=== PATIENT | female | born 1950 | race Caucasian/White ===

== ENCOUNTER 2017-09-29 16:12 | Inpatient (IN) | payer MEDICARE, OTHER ==
[2017-09-29] MEDS: IV NORMAL SALINE 1000ML BAG 1,000 ML IV ×4 (16:28→21:25)
[2017-09-29 17:03] LABS: BASO % 0 % (0-3); EOS % 0 % (0-3); HEMATOCRIT 26.3 % (36.0-47.0); HEMOGLOBIN 8.1 g/dL (12.0-15.5); LYMPH # 0.2 x10^3/uL (1.0-4.8); LYMPH % 1 % (24-48); MEAN CORPUSCULAR HEMOGLOBIN 28 pg (25-35); MEAN CORPUSCULAR HGB CONC 31 g/dL (31-37); MEAN CORPUSCULAR VOLUME 92 fL (79-100); MONO # 0.9 x10^3/uL (0.0-1.1); MONO % 5 % (0-9); NEUT # 15.8 x10^3uL (1.8-7.7); NEUT % 93 % (31-73); PLATELET COUNT 211 x10^3/uL (140-400); RED BLOOD COUNT 2.85 x10^6/uL (3.50-5.40); RED CELL DISTRIBUTION WIDTH 16.9 % (11.5-14.5)
[2017-09-29] MEDS ORDERED: ONDANSETRON PF 4 MG/2 ML VIAL. (17:11)
[2017-09-29 17:12] LABS: INR 2.9 (0.8-1.1); PROTHROMBIN TIME PATIENT 29.5 SEC (11.7-14.0)
[2017-09-29] MEDS: ONDANSETRON PF 4 MG/2 ML VIAL. IV ×2 (17:15→21:23)
[2017-09-29 17:16] LABS: ANION GAP 11 (6-14); BLOOD UREA NITROGEN 32 mg/dL (7-20); BUN/CREATININE RATIO 11 (6-20); CALCIUM 8.1 mg/dL (8.5-10.1); CARBON DIOXIDE 19 mmol/L (21-32); CHLORIDE 109 mmol/L (98-107); GFR 15.5; GLUCOSE 75 mg/dL (70-99); POTASSIUM 4.9 mmol/L (3.5-5.1); SODIUM 139 mmol/L (136-145)
[2017-09-29 17:19] LABS: ADD MAN DIFF? YES
[2017-09-29 17:22] LABS: ALBUMIN 2.2 g/dL (3.4-5.0); ALBUMIN/GLOBULIN RATIO 0.8 (1.0-1.7); ALK PHOS 87 U/L (46-116); ALT (SGPT) 36 U/L (14-59); AST (SGOT) 36 U/L (15-37); CREATINE KINASE 74 U/L (26-192); MAGNESIUM 2.3 mg/dL (1.8-2.4); TOTAL BILIRUBIN 0.4 mg/dL (0.2-1.0); TOTAL PROTEIN 4.8 g/dL (6.4-8.2)
[2017-09-29 17:24] LABS: TROPONINI 0.021 ng/mL (0.000-0.055)
[2017-09-29 17:30] LABS: NT-PRO BNP 879 pg/mL (0-124)
[2017-09-29 17:30] LABS: CKMB MASS 1.5 ng/mL (0.0-3.6); CREATINE KINASE 76 U/L (26-192)
[2017-09-29] MEDS ORDERED: VANCOMYCIN 1GM IVPB FOR OMNI 250 ML IV (17:45)
[2017-09-29] MEDS: VANCOMYCIN 2 GM in IV 1/2 NORMAL SALINE 500 ML IV (17:56)
[2017-09-29] MEDS ORDERED: LIDOCAINE 1% Multi-Dose 20 ML VIAL. INJ (18:00)
[2017-09-29] MEDS: LIDOCAINE 1% PF 30 ML VIAL. INJ (18:00)
[2017-09-29 18:27] LABS: % BANDS 13 % (0-9); % METAS 2 % (0-0); % MONOS 5 % (0-10); % SEGS 80 % (35-66)
[2017-09-29 18:29] LABS: PLT ESTIMATE ADEQUATE (ADEQUATE)
[2017-09-29 18:43] LABS: LACTIC ACID 4.8 mmol/L (0.4-2.0)
[2017-09-29] MEDS: oxyCODONE/APAP 10/325 1 TAB TABLET PO (19:44)
[2017-09-29] MEDS: VANCOMYCIN PER PHARMACY MC ×2 (20:44→20:52)
[2017-09-29] MEDS ORDERED: ONDANSETRON PF 4 MG/2 ML VIAL. IV (21:30)
[2017-09-29 21:52] LABS: LACTIC ACID 0.4 mmol/L (0.4-2.0); TROPONINI 0.028 ng/mL (0.000-0.055)
[2017-09-29 22:13] LABS: BILIRUBIN,URINE NEGATIVE (NEG); CLARITY,URINE CLOUDY; COLOR,URINE YELLOW; GLUCOSE,URINE 100 mg/dL (NEG); NITRITE,URINE NEGATIVE (NEG); PH,URINE 5.5; PROTEIN,URINE 30 mg/dL (NEG-TRACE); UROBILINOGEN,URINE 0.2 mg/dL (0.2 mg/dL)
[2017-09-29 22:21] LABS: AMORPHOUS SEDIMENT,UR PRESENT /HPF; BACTERIA,URINE 0 /HPF (0-FEW); HYALINE CASTS, URINE MANY /HPF; RBC,URINE 0 /HPF (0-2); WBC,URINE 0 /HPF (0-4)
[2017-09-29] MEDS: ZOLPIDEM 5 MG TABLET. PO (22:40)
[2017-09-29] MEDS: MEROPENEM 500 MG in IV NORMAL SALINE 50ML 50 ML IV (22:40)
[2017-09-29] MEDS: DULoxetine HCL 30 MG CAPSULE.DR PO (22:40)
[2017-09-29] MEDS: ALBUMIN HUMAN 5% 500 ML IV (22:41)
[2017-09-29] MEDS: PREGABALIN 50 MG CAPSULE PO (22:41)
[2017-09-29] MEDS: HYDROCORTISONE SOD SUCC/PF 100 MG/2 ML VIAL. IV (22:41)
[2017-09-29] MEDS: SODIUM BICARBONATE VIAL 75 MEQ in IV 1/2 NORMAL SALINE 1,000 ML IV (23:42)
[2017-09-30] MEDS: oxyCODONE IR 5 MG TABLET PO ×2 (02:16→18:06)
[2017-09-30] MEDS: HYDROCORTISONE SOD SUCC/PF 100 MG/2 ML VIAL. IV ×3 (05:29→21:48)
[2017-09-30] MEDS: MEROPENEM 500 MG in IV NORMAL SALINE 50ML 50 ML IV ×3 (05:30→21:50)
[2017-09-30 05:51] LABS: ADD MAN DIFF? NO
[2017-09-30 06:01] LABS: BASO % 0 % (0-3); EOS % 0 % (0-3); HEMATOCRIT 25.6 % (36.0-47.0); HEMOGLOBIN 8.3 g/dL (12.0-15.5); LYMPH # 0.2 x10^3/uL (1.0-4.8); LYMPH % 1 % (24-48); MEAN CORPUSCULAR HEMOGLOBIN 28 pg (25-35); MEAN CORPUSCULAR HGB CONC 32 g/dL (31-37); MEAN CORPUSCULAR VOLUME 88 fL (79-100); MONO # 0.5 x10^3/uL (0.0-1.1); MONO % 4 % (0-9); NEUT % 95 % (31-73); PLATELET COUNT 212 x10^3/uL (140-400); RED BLOOD COUNT 2.92 x10^6/uL (3.50-5.40); RED CELL DISTRIBUTION WIDTH 16.4 % (11.5-14.5); WHITE BLOOD COUNT 14.7 x10^3/uL (4.0-11.0)
[2017-09-30 06:09] LABS: ANION GAP 10 (6-14); BLOOD UREA NITROGEN 28 mg/dL (7-20); CALCIUM 7.5 mg/dL (8.5-10.1); CARBON DIOXIDE 23 mmol/L (21-32); CHLORIDE 106 mmol/L (98-107); CREATININE 1.9 mg/dL (0.6-1.0); GFR 26.3; GLUCOSE 115 mg/dL (70-99); POTASSIUM 4.4 mmol/L (3.5-5.1); SODIUM 139 mmol/L (136-145)
[2017-09-30 06:28] LABS: INR 3.2 (0.8-1.1)
[2017-09-30] MEDS: DULoxetine HCL 30 MG CAPSULE.DR PO ×2 (08:24→21:47)
[2017-09-30] MEDS: ALBUMIN HUMAN 25% 100 ML IV ×3 (08:24→21:48)
[2017-09-30] MEDS: PREGABALIN 50 MG CAPSULE PO ×4 (08:24→21:47)
[2017-09-30] MEDS ORDERED: DOCUSATE SODIUM 100 MG CAPSULE. PO (08:30)
[2017-09-30] MEDS ORDERED: NON FORMULARY ITEM (Warfarin Sodium 1 TAB) PO (09:00)
[2017-09-30] MEDS ORDERED: ZOLPIDEM 5 MG TABLET. PO (09:30)
[2017-09-30] MEDS: ZOLPIDEM 5 MG TABLET. PO ×2 (09:30→21:48)
[2017-09-30] MEDS: ARIPiprazole 5 MG TABLET PO (09:53)
[2017-09-30] MEDS: MORPHINE SULFATE 4 MG/ML DISP.SYRIN. IV ×2 (09:53→19:35)
[2017-09-30] MEDS: HYDROXYCHLOROQUINE 200 MG TABLET PO ×2 (09:53→21:47)
[2017-09-30] MEDS: SODIUM BICARBONATE VIAL 75 MEQ in IV 1/2 NORMAL SALINE 1,000 ML IV (09:54)
[2017-09-30 11:08] LABS: % SAT IRON 5 % (15-34); IRON,SERUM 9 ug/dL (50-170)
[2017-09-30] MEDS: POLYETHYLENE GLYCOL 3350 17 GM PACKET. PO (11:20)
[2017-09-30] MEDS ORDERED: LOPERAMIDE 2 MG CAPSULE PO (11:45)
[2017-09-30] MEDS: PANTOPRAZOLE 40 MG TABLET.DR. PO (11:52)
[2017-09-30] MEDS: ONDANSETRON PF 4 MG/2 ML VIAL. IV ×2 (11:53→17:21)
[2017-09-30] MEDS: VANCOMYCIN PER PHARMACY MC (12:48)
[2017-09-30] MEDS ORDERED: MAGNESIUM SULFATE 2GM 50 ML IV (13:15)
[2017-09-30] MEDS: IV NORMAL SALINE 1000ML BAG 1,000 ML IV (13:44)
[2017-09-30 13:48] LABS: PREALBUMIN 14.2 mg/dL (16.0-42.0)
[2017-09-30 14:02] LABS: FERRITIN 238 ng/mL (8-252)
[2017-09-30] MEDS: VANCOMYCIN 1.25 GM in IV DEXTROSE 5 %-0.2 % NACL 250 ML IV (17:20)
[2017-09-30] MEDS: ACETAMINOPHEN 325 MG TABLET. PO (17:20)
[2017-09-30 18:12] LABS: MRSA BY PCR Negative (Negative)
[2017-09-30] MEDS: LACTOBACILLUS RHAMNOSUS GG 1 CAPSULE. PO (21:48)
[2017-10-01] MEDS: oxyCODONE IR 5 MG TABLET PO ×2 (01:17→11:41)
[2017-10-01] MEDS: MORPHINE SULFATE 4 MG/ML DISP.SYRIN. IV ×5 (02:04→20:01)
[2017-10-01] MEDS: IV NORMAL SALINE 1000ML BAG 1,000 ML IV (04:44)
[2017-10-01 04:57] LABS: ADD MAN DIFF? NO
[2017-10-01 05:10] LABS: BASO % 0 % (0-3); EOS % 0 % (0-3); LYMPH # 0.2 x10^3/uL (1.0-4.8); LYMPH % 2 % (24-48); MEAN CORPUSCULAR HEMOGLOBIN 29 pg (25-35); MEAN CORPUSCULAR HGB CONC 33 g/dL (31-37); MEAN CORPUSCULAR VOLUME 87 fL (79-100); MONO # 0.4 x10^3/uL (0.0-1.1); MONO % 4 % (0-9); NEUT # 9.3 x10^3uL (1.8-7.7); NEUT % 93 % (31-73); PLATELET COUNT 170 x10^3/uL (140-400); RED BLOOD COUNT 2.22 x10^6/uL (3.50-5.40); RED CELL DISTRIBUTION WIDTH 16.4 % (11.5-14.5)
[2017-10-01 05:24] LABS: HEMATOCRIT 19.3 % (36.0-47.0); HEMOGLOBIN 6.4 g/dL (12.0-15.5)
[2017-10-01 05:37] LABS: MAGNESIUM 1.8 mg/dL (1.8-2.4)
[2017-10-01 05:37] LABS: INR 3.2 (0.8-1.1)
[2017-10-01 05:41] LABS: ANION GAP 8 (6-14); BLOOD UREA NITROGEN 14 mg/dL (7-20); CALCIUM 7.8 mg/dL (8.5-10.1); CARBON DIOXIDE 28 mmol/L (21-32); CHLORIDE 107 mmol/L (98-107); CREATININE 1.2 mg/dL (0.6-1.0); GFR 44.7; GLUCOSE 110 mg/dL (70-99); PHOSPHORUS 2.7 mg/dL (2.6-4.7); POTASSIUM 3.2 mmol/L (3.5-5.1); SODIUM 143 mmol/L (136-145)
[2017-10-01] MEDS: MEROPENEM 500 MG in IV NORMAL SALINE 50ML 50 ML IV ×3 (06:29→19:59)
[2017-10-01] MEDS: HYDROCORTISONE SOD SUCC/PF 100 MG/2 ML VIAL. IV ×3 (06:30→21:33)
[2017-10-01] MEDS: VANCOMYCIN PER PHARMACY MC ×2 (07:39→19:49)
[2017-10-01] MEDS: DULoxetine HCL 30 MG CAPSULE.DR PO ×2 (08:44→20:02)
[2017-10-01] MEDS: PANTOPRAZOLE 40 MG TABLET.DR. PO (08:44)
[2017-10-01] MEDS: PREGABALIN 50 MG CAPSULE PO ×3 (08:44→20:15)
[2017-10-01] MEDS: LACTOBACILLUS RHAMNOSUS GG 1 CAPSULE. PO ×2 (08:44→20:02)
[2017-10-01] MEDS: HYDROXYCHLOROQUINE 200 MG TABLET PO ×2 (08:44→20:03)
[2017-10-01] MEDS: ARIPiprazole 5 MG TABLET PO (08:44)
[2017-10-01] MEDS: POLYETHYLENE GLYCOL 3350 17 GM PACKET. PO (08:45)
[2017-10-01 10:13] LABS: CROSSMATCH AHG 1 1
[2017-10-01] MEDS: ALBUMIN HUMAN 25% 100 ML IV ×3 (10:13→20:02)
[2017-10-01] MEDS: PHYTONADIONE (VIT K1) IV 10 MG in IV DEXTROSE 5% 50 ML IV (10:14)
[2017-10-01] MEDS: POTASSIUM CHLORIDE 20 MEQ TABLET.ER. PO (10:14)
[2017-10-01 11:11] LABS: TOTAL PROTEIN CREATININE RATIO 559 mg/g creat (0-200)
[2017-10-01] MEDS: ONDANSETRON PF 4 MG/2 ML VIAL. IV (11:41)
[2017-10-01] MEDS: IRON SUCROSE COMPLEX 200 MG in IV NORMAL SALINE 100ML 100 ML IV (12:31)
[2017-10-01 14:17] LABS: HEMATOCRIT 22.9 % (36.0-47.0); HEMOGLOBIN 7.6 g/dL (12.0-15.5); MEAN CORPUSCULAR HGB CONC 33 g/dL (31-37)
[2017-10-01 15:10] LABS: C DIFF BY PCR Negative (Negative)
[2017-10-01] MEDS: diphenhydrAMINE 50 MG/ML VIAL IVP (17:35)
[2017-10-01 18:06] LABS: VANC TR 15.5 mcg/mL (10.0-20.0)
[2017-10-01] MEDS: VANCOMYCIN 1.25 GM in IV DEXTROSE 5 %-0.2 % NACL 250 ML IV (18:35)
[2017-10-01] MEDS: ZOLPIDEM 5 MG TABLET. PO (20:02)
[2017-10-01] MEDS: MESALAMINE 1,000 MG SUPP.RECT PR (20:03)
[2017-10-02] MEDS: oxyCODONE IR 5 MG TABLET PO ×3 (00:28→21:31)
[2017-10-02] MEDS: diphenhydrAMINE 50 MG/ML VIAL IVP (00:28)
[2017-10-02] MEDS: MEROPENEM 500 MG in IV NORMAL SALINE 50ML 50 ML IV ×4 (00:29→17:53)
[2017-10-02] MEDS: HYDROCORTISONE SOD SUCC/PF 100 MG/2 ML VIAL. IV ×3 (05:58→21:20)
[2017-10-02] MEDS: MORPHINE SULFATE 4 MG/ML DISP.SYRIN. IV ×2 (05:59→14:04)
[2017-10-02 06:13] LABS: ADD MAN DIFF? NO
[2017-10-02 06:17] LABS: BASO % 0 % (0-3); EOS % 0 % (0-3); HEMATOCRIT 23.5 % (36.0-47.0); HEMOGLOBIN 7.6 g/dL (12.0-15.5); LYMPH # 0.4 x10^3/uL (1.0-4.8); LYMPH % 4 % (24-48); MEAN CORPUSCULAR HEMOGLOBIN 29 pg (25-35); MEAN CORPUSCULAR HGB CONC 33 g/dL (31-37); MEAN CORPUSCULAR VOLUME 88 fL (79-100); MONO # 0.8 x10^3/uL (0.0-1.1); MONO % 7 % (0-9); NEUT # 10.9 x10^3uL (1.8-7.7); NEUT % 90 % (31-73); PLATELET COUNT 176 x10^3/uL (140-400); RED BLOOD COUNT 2.68 x10^6/uL (3.50-5.40); RED CELL DISTRIBUTION WIDTH 16.4 % (11.5-14.5); WHITE BLOOD COUNT 12.2 x10^3/uL (4.0-11.0)
[2017-10-02 06:31] LABS: ALBUMIN 3.7 g/dL (3.4-5.0); ANION GAP 8 (6-14); BLOOD UREA NITROGEN 15 mg/dL (7-20); CALCIUM 8.4 mg/dL (8.5-10.1); CARBON DIOXIDE 29 mmol/L (21-32); CHLORIDE 109 mmol/L (98-107); CREATININE 1.1 mg/dL (0.6-1.0); GFR 49.4; GLUCOSE 105 mg/dL (70-99); MAGNESIUM 1.8 mg/dL (1.8-2.4); PHOSPHORUS 1.7 mg/dL (2.6-4.7); POTASSIUM 3.5 mmol/L (3.5-5.1); SODIUM 146 mmol/L (136-145)
[2017-10-02 06:34] LABS: INR 1.2 (0.8-1.1); PROTHROMBIN TIME PATIENT 14.5 SEC (11.7-14.0)
[2017-10-02] MEDS: POLYETHYLENE GLYCOL 3350 17 GM PACKET. PO (09:00)
[2017-10-02 09:25] LABS: VITAMIN-B12 1004 pg/mL (247-911)
[2017-10-02] MEDS: LACTOBACILLUS RHAMNOSUS GG 1 CAPSULE. PO ×2 (09:28→21:19)
[2017-10-02] MEDS: HYDROXYCHLOROQUINE 200 MG TABLET PO ×2 (09:29→21:19)
[2017-10-02] MEDS: DULoxetine HCL 30 MG CAPSULE.DR PO ×2 (09:29→21:20)
[2017-10-02] MEDS: PREGABALIN 50 MG CAPSULE PO ×3 (09:29→21:20)
[2017-10-02] MEDS: ARIPiprazole 5 MG TABLET PO (09:29)
[2017-10-02] MEDS: PANTOPRAZOLE 40 MG TABLET.DR. PO (09:29)
[2017-10-02] MEDS: IRON SUCROSE COMPLEX 200 MG in IV NORMAL SALINE 100ML 100 ML IV (09:30)
[2017-10-02] MEDS: ONDANSETRON PF 4 MG/2 ML VIAL. IV (09:47)
[2017-10-02 10:38] LABS: FOLATE > 20.00 ng/ml (3.2-20.0)
[2017-10-02] MEDS: ASCORBIC ACID 500 MG TABLET PO (14:12)
[2017-10-02] MEDS: MULTIVITAMIN with MINERAL TABLET. PO (14:13)
[2017-10-02] MEDS: VANCOMYCIN PER PHARMACY MC (14:42)
[2017-10-02] MEDS: ALPRAZolam 0.5 MG TABLET PO (17:49)
[2017-10-02] MEDS: WARFARIN 3 MG TABLET. PO (17:49)
[2017-10-02] MEDS: VANCOMYCIN 1.25 GM in IV DEXTROSE 5 %-0.2 % NACL 250 ML IV (19:08)
[2017-10-02] MEDS: ZOLPIDEM 5 MG TABLET. PO (21:19)
[2017-10-02] MEDS: MESALAMINE 1,000 MG SUPP.RECT PR (21:20)
[2017-10-03] MEDS: MEROPENEM 500 MG in IV NORMAL SALINE 50ML 50 ML IV ×5 (00:09→23:38)
[2017-10-03] MEDS: MORPHINE SULFATE 4 MG/ML DISP.SYRIN. IV ×5 (02:36→23:38)
[2017-10-03] MEDS: diphenhydrAMINE 50 MG/ML VIAL IVP ×2 (02:40→17:59)
[2017-10-03] MEDS: HYDROCORTISONE SOD SUCC/PF 100 MG/2 ML VIAL. IV ×3 (05:56→21:22)
[2017-10-03] MEDS: oxyCODONE IR 5 MG TABLET PO ×3 (06:12→19:48)
[2017-10-03 06:29] LABS: INR 1.1 (0.8-1.1); PROTHROMBIN TIME PATIENT 13.7 SEC (11.7-14.0)
[2017-10-03 06:41] LABS: ALBUMIN 3.4 g/dL (3.4-5.0); ANION GAP 7 (6-14); BLOOD UREA NITROGEN 14 mg/dL (7-20); CALCIUM 8.2 mg/dL (8.5-10.1); CARBON DIOXIDE 29 mmol/L (21-32); CHLORIDE 112 mmol/L (98-107); CREATININE 0.9 mg/dL (0.6-1.0); GFR 62.3; GLUCOSE 94 mg/dL (70-99); MAGNESIUM 1.9 mg/dL (1.8-2.4); PHOSPHORUS 2.2 mg/dL (2.6-4.7); POTASSIUM 3.2 mmol/L (3.5-5.1); SODIUM 148 mmol/L (136-145)
[2017-10-03 08:19] LABS: ADD MAN DIFF? NO
[2017-10-03 08:39] LABS: BASO % 0 % (0-3); EOS % 0 % (0-3); HEMATOCRIT 24.6 % (36.0-47.0); HEMOGLOBIN 8.2 g/dL (12.0-15.5); LYMPH # 0.4 x10^3/uL (1.0-4.8); LYMPH % 3 % (24-48); MEAN CORPUSCULAR HEMOGLOBIN 29 pg (25-35); MEAN CORPUSCULAR HGB CONC 33 g/dL (31-37); MEAN CORPUSCULAR VOLUME 86 fL (79-100); MONO % 7 % (0-9); NEUT # 12.6 x10^3uL (1.8-7.7); NEUT % 90 % (31-73); PLATELET COUNT 175 x10^3/uL (140-400); RED BLOOD COUNT 2.86 x10^6/uL (3.50-5.40); RED CELL DISTRIBUTION WIDTH 16.5 % (11.5-14.5); WHITE BLOOD COUNT 14.1 x10^3/uL (4.0-11.0)
[2017-10-03] MEDS: DULoxetine HCL 30 MG CAPSULE.DR PO ×2 (08:58→21:22)
[2017-10-03] MEDS: MULTIVITAMIN with MINERAL TABLET. PO (08:58)
[2017-10-03] MEDS: PANTOPRAZOLE 40 MG TABLET.DR. PO (08:58)
[2017-10-03] MEDS: traMADol 50 MG TABLET PO (08:58)
[2017-10-03] MEDS: PREGABALIN 50 MG CAPSULE PO ×3 (08:58→21:22)
[2017-10-03] MEDS: ARIPiprazole 5 MG TABLET PO (08:58)
[2017-10-03] MEDS: LACTOBACILLUS RHAMNOSUS GG 1 CAPSULE. PO ×2 (08:58→21:22)
[2017-10-03] MEDS: POLYETHYLENE GLYCOL 3350 17 GM PACKET. PO (08:59)
[2017-10-03] MEDS: HYDROXYCHLOROQUINE 200 MG TABLET PO ×2 (08:59→21:22)
[2017-10-03] MEDS: ASCORBIC ACID 500 MG TABLET PO (08:59)
[2017-10-03] MEDS: hydrALAZINE 20 MG/ML VIAL. IVP ×2 (09:00→19:49)
[2017-10-03] MEDS: LISINOPRIL 20 MG TABLET PO (10:48)
[2017-10-03] MEDS: tiZANidine 4 MG TABLET. PO (10:49)
[2017-10-03] MEDS: amLODIPine BESYLATE 5 MG TABLET PO (10:49)
[2017-10-03] MEDS ORDERED: CONTRAST GIVEN. MC (12:15)
[2017-10-03] MEDS: IOHEXOL 300 MG/ML 100ML VIAL. IV ×2 (12:30→12:49)
[2017-10-03] MEDS: DICLOFENAC SODIUM 1% TOPICAL GEL 100GM TUBE. TP ×3 (13:17→21:35)
[2017-10-03] MEDS: ALPRAZolam 0.5 MG TABLET PO ×2 (13:20→21:22)
[2017-10-03] MEDS: WARFARIN 5 MG TABLET. PO (15:47)
[2017-10-03] MEDS: VANCOMYCIN 1.25 GM in IV DEXTROSE 5 %-0.2 % NACL 250 ML IV (17:59)
[2017-10-03] MEDS: ZOLPIDEM 5 MG TABLET. PO (21:22)
[2017-10-03] MEDS: MESALAMINE 1,000 MG SUPP.RECT PR (21:22)
[2017-10-04] MEDS: HYDROCORTISONE SOD SUCC/PF 100 MG/2 ML VIAL. IV ×3 (05:13→21:08)
[2017-10-04] MEDS: MEROPENEM 500 MG in IV NORMAL SALINE 50ML 50 ML IV ×3 (05:13→17:31)
[2017-10-04] MEDS: oxyCODONE IR 5 MG TABLET PO ×2 (05:14→17:31)
[2017-10-04] MEDS: hydrALAZINE 20 MG/ML VIAL. IVP (05:14)
[2017-10-04 06:26] LABS: INR 1.1 (0.8-1.1); PROTHROMBIN TIME PATIENT 14.1 SEC (11.7-14.0)
[2017-10-04 06:34] LABS: ALBUMIN 3.6 g/dL (3.4-5.0); ANION GAP 11 (6-14); BLOOD UREA NITROGEN 14 mg/dL (7-20); CALCIUM 8.5 mg/dL (8.5-10.1); CARBON DIOXIDE 29 mmol/L (21-32); CHLORIDE 109 mmol/L (98-107); GFR 55.1; GLUCOSE 94 mg/dL (70-99); MAGNESIUM 1.8 mg/dL (1.8-2.4); PHOSPHORUS 2.4 mg/dL (2.6-4.7); SODIUM 149 mmol/L (136-145)
[2017-10-04 06:45] LABS: POTASSIUM 2.6 mmol/L (3.5-5.1)
[2017-10-04] MEDS: MULTIVITAMIN with MINERAL TABLET. PO (08:31)
[2017-10-04] MEDS: LACTOBACILLUS RHAMNOSUS GG 1 CAPSULE. PO ×2 (08:31→21:07)
[2017-10-04] MEDS: ARIPiprazole 5 MG TABLET PO (08:32)
[2017-10-04] MEDS: PREGABALIN 50 MG CAPSULE PO ×3 (08:32→21:07)
[2017-10-04] MEDS: ACETAMINOPHEN 325 MG TABLET. PO (08:32)
[2017-10-04] MEDS: HYDROXYCHLOROQUINE 200 MG TABLET PO ×2 (08:32→21:19)
[2017-10-04] MEDS: PANTOPRAZOLE 40 MG TABLET.DR. PO (08:32)
[2017-10-04] MEDS: DULoxetine HCL 30 MG CAPSULE.DR PO ×2 (08:32→21:07)
[2017-10-04] MEDS: IRON SUCROSE COMPLEX 200 MG in IV NORMAL SALINE 100ML 100 ML IV (08:32)
[2017-10-04] MEDS: amLODIPine BESYLATE 5 MG TABLET PO (08:33)
[2017-10-04] MEDS: ASCORBIC ACID 500 MG TABLET PO (08:33)
[2017-10-04] MEDS: LISINOPRIL 20 MG TABLET PO (08:33)
[2017-10-04] MEDS: POLYETHYLENE GLYCOL 3350 17 GM PACKET. PO (08:34)
[2017-10-04] MEDS: DICLOFENAC SODIUM 1% TOPICAL GEL 100GM TUBE. TP ×4 (08:34→21:08)
[2017-10-04] MEDS: POTASSIUM CHLORIDE 10 MEQ TABLET.ER. PO (08:34)
[2017-10-04] MEDS: diphenhydrAMINE 50 MG/ML VIAL IVP (11:46)
[2017-10-04] MEDS: ALPRAZolam 0.5 MG TABLET PO ×2 (11:50→21:07)
[2017-10-04] MEDS: NYSTATIN 100,000 UNITS/ML 5 ML ORAL.SUSP. SWSW ×3 (12:00→21:19)
[2017-10-04] MEDS: MORPHINE SULFATE 4 MG/ML DISP.SYRIN. IV ×2 (16:16→21:08)
[2017-10-04] MEDS: WARFARIN 7.5 MG TABLET. PO (16:17)
[2017-10-04] MEDS: ZOLPIDEM 5 MG TABLET. PO (21:07)
[2017-10-04] MEDS: MESALAMINE 1,000 MG SUPP.RECT PR (21:08)
[2017-10-05] MEDS: hydrALAZINE 20 MG/ML VIAL. IVP (00:44)
[2017-10-05] MEDS: oxyCODONE IR 5 MG TABLET PO ×4 (02:04→21:35)
[2017-10-05] MEDS: HYDROCORTISONE SOD SUCC/PF 100 MG/2 ML VIAL. IV (06:16)
[2017-10-05] MEDS: MEROPENEM 500 MG in IV NORMAL SALINE 50ML 50 ML IV ×2 (06:16)
[2017-10-05 06:37] LABS: ADD MAN DIFF? NO
[2017-10-05 06:40] LABS: BASO % 0 % (0-3); EOS % 0 % (0-3); HEMATOCRIT 24.5 % (36.0-47.0); HEMOGLOBIN 8.3 g/dL (12.0-15.5); LYMPH # 0.7 x10^3/uL (1.0-4.8); LYMPH % 5 % (24-48); MEAN CORPUSCULAR HEMOGLOBIN 29 pg (25-35); MEAN CORPUSCULAR HGB CONC 34 g/dL (31-37); MEAN CORPUSCULAR VOLUME 85 fL (79-100); MONO % 8 % (0-9); NEUT # 11.2 x10^3uL (1.8-7.7); NEUT % 87 % (31-73); PLATELET COUNT 161 x10^3/uL (140-400); RED BLOOD COUNT 2.88 x10^6/uL (3.50-5.40); RED CELL DISTRIBUTION WIDTH 16.7 % (11.5-14.5); WHITE BLOOD COUNT 12.8 x10^3/uL (4.0-11.0)
[2017-10-05 06:57] LABS: INR 1.8 (0.8-1.1); PROTHROMBIN TIME PATIENT 20.2 SEC (11.7-14.0)
[2017-10-05 07:06] LABS: ANION GAP 5 (6-14); BLOOD UREA NITROGEN 17 mg/dL (7-20); CALCIUM 8.1 mg/dL (8.5-10.1); CARBON DIOXIDE 34 mmol/L (21-32); CHLORIDE 110 mmol/L (98-107); GFR 55.1; GLUCOSE 91 mg/dL (70-99); MAGNESIUM 1.8 mg/dL (1.8-2.4); PHOSPHORUS 3.2 mg/dL (2.6-4.7); SODIUM 149 mmol/L (136-145)
[2017-10-05 07:10] LABS: POTASSIUM 2.2 mmol/L (3.5-5.1)
[2017-10-05] MEDS: NYSTATIN 100,000 UNITS/ML 5 ML ORAL.SUSP. SWSW ×4 (08:27→20:15)
[2017-10-05] MEDS: HYDROXYCHLOROQUINE 200 MG TABLET PO ×2 (08:27→20:15)
[2017-10-05] MEDS: PREGABALIN 50 MG CAPSULE PO ×3 (08:28→20:16)
[2017-10-05] MEDS: ASCORBIC ACID 500 MG TABLET PO (08:28)
[2017-10-05] MEDS: amLODIPine BESYLATE 5 MG TABLET PO (08:28)
[2017-10-05] MEDS: DULoxetine HCL 30 MG CAPSULE.DR PO ×2 (08:28→20:16)
[2017-10-05] MEDS: PANTOPRAZOLE 40 MG TABLET.DR. PO (08:28)
[2017-10-05] MEDS: ARIPiprazole 5 MG TABLET PO (08:28)
[2017-10-05] MEDS: MULTIVITAMIN with MINERAL TABLET. PO (08:28)
[2017-10-05] MEDS: LACTOBACILLUS RHAMNOSUS GG 1 CAPSULE. PO ×2 (08:28→20:16)
[2017-10-05] MEDS: LISINOPRIL 20 MG TABLET PO (08:29)
[2017-10-05] MEDS: POTASSIUM CHLORIDE 20 MEQ TABLET.ER. PO ×2 (08:29→15:13)
[2017-10-05] MEDS: POLYETHYLENE GLYCOL 3350 17 GM PACKET. PO (08:32)
[2017-10-05] MEDS: DICLOFENAC SODIUM 1% TOPICAL GEL 100GM TUBE. TP ×4 (08:32→20:14)
[2017-10-05] MEDS: LINEZOLID 600 MG TABLET PO ×2 (09:30→20:15)
[2017-10-05] MEDS: ONDANSETRON PF 4 MG/2 ML VIAL. IV ×2 (09:39→18:17)
[2017-10-05] MEDS: COLESTIPOL HCL 1 GM TABLET PO (13:11)
[2017-10-05] MEDS: tiZANidine 4 MG TABLET. PO (15:13)
[2017-10-05] MEDS: WARFARIN 4 MG TABLET. PO (15:13)
[2017-10-05] MEDS: MORPHINE SULFATE 4 MG/ML DISP.SYRIN. IV ×2 (16:31→20:15)
[2017-10-05] MEDS: MESALAMINE 1,000 MG SUPP.RECT PR (20:15)
[2017-10-05] MEDS: ALPRAZolam 0.5 MG TABLET PO (20:15)
[2017-10-05] MEDS: ZOLPIDEM 5 MG TABLET. PO (20:16)
[2017-10-05] MEDS: diphenhydrAMINE 50 MG/ML VIAL IVP (21:36)
[2017-10-06] MEDS: MORPHINE SULFATE 4 MG/ML DISP.SYRIN. IV ×3 (03:10→19:48)
[2017-10-06 07:07] LABS: ALBUMIN 2.8 g/dL (3.4-5.0); ANION GAP 5 (6-14); BLOOD UREA NITROGEN 16 mg/dL (7-20); CALCIUM 8.2 mg/dL (8.5-10.1); CARBON DIOXIDE 36 mmol/L (21-32); CHLORIDE 109 mmol/L (98-107); CREATININE 0.9 mg/dL (0.6-1.0); GFR 62.3; GLUCOSE 59 mg/dL (70-99); PHOSPHORUS 1.6 mg/dL (2.6-4.7); SODIUM 150 mmol/L (136-145)
[2017-10-06 07:10] LABS: INR 2.2 (0.8-1.1); PROTHROMBIN TIME PATIENT 23.9 SEC (11.7-14.0)
[2017-10-06 07:12] LABS: POTASSIUM 2.5 mmol/L (3.5-5.1)
[2017-10-06] MEDS: oxyCODONE IR 5 MG TABLET PO ×3 (07:59→17:49)
[2017-10-06] MEDS: LINEZOLID 600 MG TABLET PO ×2 (07:59→22:09)
[2017-10-06] MEDS: HYDROXYCHLOROQUINE 200 MG TABLET PO ×2 (07:59→22:13)
[2017-10-06] MEDS: PREGABALIN 50 MG CAPSULE PO ×3 (08:00→22:08)
[2017-10-06] MEDS: NYSTATIN 100,000 UNITS/ML 5 ML ORAL.SUSP. SWSW ×4 (08:00→22:09)
[2017-10-06] MEDS: POLYETHYLENE GLYCOL 3350 17 GM PACKET. PO (08:00)
[2017-10-06] MEDS: DICLOFENAC SODIUM 1% TOPICAL GEL 100GM TUBE. TP ×4 (08:00→22:09)
[2017-10-06] MEDS: ASCORBIC ACID 500 MG TABLET PO (08:01)
[2017-10-06] MEDS: ARIPiprazole 5 MG TABLET PO (08:01)
[2017-10-06] MEDS: POTASSIUM CHLORIDE 20 MEQ TABLET.ER. PO ×2 (08:01→12:16)
[2017-10-06] MEDS: LISINOPRIL 20 MG TABLET PO (08:02)
[2017-10-06] MEDS: MULTIVITAMIN with MINERAL TABLET. PO (08:02)
[2017-10-06] MEDS: amLODIPine BESYLATE 5 MG TABLET PO (08:03)
[2017-10-06] MEDS: LACTOBACILLUS RHAMNOSUS GG 1 CAPSULE. PO ×2 (08:03→22:07)
[2017-10-06] MEDS: PANTOPRAZOLE 40 MG TABLET.DR. PO (08:03)
[2017-10-06] MEDS: DULoxetine HCL 30 MG CAPSULE.DR PO ×2 (08:03→22:07)
[2017-10-06] MEDS: predniSONE 10 MG TABLET PO (08:03)
[2017-10-06] MEDS: IRON SUCROSE COMPLEX 200 MG in IV NORMAL SALINE 100ML 100 ML IV (08:13)
[2017-10-06] MEDS: ALPRAZolam 0.5 MG TABLET PO ×2 (08:18→22:34)
[2017-10-06] MEDS: diphenhydrAMINE 50 MG/ML VIAL IVP ×2 (08:18→22:13)
[2017-10-06] MEDS ORDERED: ASCORBIC ACID 500 MG TABLET PO (11:00)
[2017-10-06] MEDS: COLESTIPOL HCL 1 GM TABLET PO ×2 (12:15→21:07)
[2017-10-06] MEDS: ALBUMIN HUMAN 25% 100 ML IV (12:15)
[2017-10-06] MEDS: MULTIVITAMIN I-VITE TABLET. PO (12:15)
[2017-10-06 16:05] LABS: MAGNESIUM 1.6 mg/dL (1.8-2.4)
[2017-10-06 16:05] LABS: PHOSPHORUS 1.6 mg/dL (2.6-4.7)
[2017-10-06] MEDS: WARFARIN 4 MG TABLET. PO (17:49)
[2017-10-06] MEDS: POTASSIUM CL 20MEQ D5-0.45NACL 1,000 ML IV (18:01)
[2017-10-06] MEDS: POTASSIUM PHOSPHATE DIBASIC 13.6 MMOL in IV NORMAL SALINE 100ML 100 ML IV ×2 (19:49→22:28)
[2017-10-06] MEDS: ZOLPIDEM 5 MG TABLET. PO (22:08)
[2017-10-06] MEDS: MESALAMINE 1,000 MG SUPP.RECT PR (22:08)
[2017-10-07] MEDS: oxyCODONE IR 5 MG TABLET PO ×4 (03:00→21:39)
[2017-10-07] MEDS: POTASSIUM CL 20MEQ D5-0.45NACL 1,000 ML IV ×2 (04:59→12:55)
[2017-10-07] MEDS: MORPHINE SULFATE 4 MG/ML DISP.SYRIN. IV ×3 (05:53→20:18)
[2017-10-07 07:06] LABS: ALBUMIN 3.1 g/dL (3.4-5.0); ANION GAP 4 (6-14); BLOOD UREA NITROGEN 10 mg/dL (7-20); CALCIUM 7.5 mg/dL (8.5-10.1); CARBON DIOXIDE 36 mmol/L (21-32); CHLORIDE 107 mmol/L (98-107); CREATININE 0.7 mg/dL (0.6-1.0); GFR 83.2; GLUCOSE 81 mg/dL (70-99); POTASSIUM 3.4 mmol/L (3.5-5.1); SODIUM 147 mmol/L (136-145)
[2017-10-07 07:14] LABS: INR 2.9 (0.8-1.1); PROTHROMBIN TIME PATIENT 29.9 SEC (11.7-14.0)
[2017-10-07] MEDS: POLYETHYLENE GLYCOL 3350 17 GM PACKET. PO (07:52)
[2017-10-07] MEDS: DICLOFENAC SODIUM 1% TOPICAL GEL 100GM TUBE. TP ×4 (07:53→21:00)
[2017-10-07] MEDS: PANTOPRAZOLE 40 MG TABLET.DR. PO (08:00)
[2017-10-07] MEDS: ARIPiprazole 5 MG TABLET PO (08:00)
[2017-10-07] MEDS: PREGABALIN 50 MG CAPSULE PO ×3 (08:00→21:40)
[2017-10-07] MEDS: LACTOBACILLUS RHAMNOSUS GG 1 CAPSULE. PO ×2 (08:00→21:42)
[2017-10-07] MEDS: predniSONE 10 MG TABLET PO (08:01)
[2017-10-07] MEDS: DULoxetine HCL 30 MG CAPSULE.DR PO ×2 (08:01→21:42)
[2017-10-07] MEDS: LINEZOLID 600 MG TABLET PO ×2 (08:01→21:42)
[2017-10-07] MEDS: ASCORBIC ACID 500 MG TABLET PO (08:01)
[2017-10-07] MEDS: NYSTATIN 100,000 UNITS/ML 5 ML ORAL.SUSP. SWSW ×4 (08:02→21:43)
[2017-10-07] MEDS: LISINOPRIL 20 MG TABLET PO (08:02)
[2017-10-07] MEDS: MULTIVITAMIN I-VITE TABLET. PO (08:02)
[2017-10-07] MEDS: COLESTIPOL HCL 1 GM TABLET PO ×2 (08:02→20:06)
[2017-10-07] MEDS: amLODIPine BESYLATE 5 MG TABLET PO ×2 (08:05→21:42)
[2017-10-07] MEDS: HYDROXYCHLOROQUINE 200 MG TABLET PO ×2 (08:06→21:41)
[2017-10-07] MEDS: MAGNESIUM OXIDE 400 MG TABLET PO (12:52)
[2017-10-07] MEDS: POTASSIUM & SODIUM PHOSPHATES PACKET. PO (12:53)
[2017-10-07] MEDS: FUROSEMIDE 40 MG/4 ML VIAL. IVP (13:42)
[2017-10-07] MEDS: ALPRAZolam 0.5 MG TABLET PO ×2 (13:42→21:40)
[2017-10-07] MEDS: ALBUMIN HUMAN 25% 100 ML IV (13:46)
[2017-10-07] MEDS: WARFARIN 4 MG TABLET. PO (15:55)
[2017-10-07] MEDS: ZOLPIDEM 5 MG TABLET. PO (21:43)
[2017-10-07] MEDS: MESALAMINE 1,000 MG SUPP.RECT PR (21:44)
[2017-10-07] MEDS: diphenhydrAMINE 50 MG/ML VIAL IVP (21:44)
[2017-10-08] MEDS: POTASSIUM CL 20MEQ D5-0.45NACL 1,000 ML IV ×2 (02:25→16:07)
[2017-10-08] MEDS: oxyCODONE IR 5 MG TABLET PO ×4 (02:26→22:10)
[2017-10-08 05:43] LABS: INR 3.8 (0.8-1.1); PROTHROMBIN TIME PATIENT 36.8 SEC (11.7-14.0)
[2017-10-08 06:00] LABS: ANION GAP 2 (6-14); BLOOD UREA NITROGEN 10 mg/dL (7-20); CALCIUM 8.1 mg/dL (8.5-10.1); CARBON DIOXIDE 38 mmol/L (21-32); CHLORIDE 102 mmol/L (98-107); CREATININE 0.8 mg/dL (0.6-1.0); GFR 71.3; GLUCOSE 96 mg/dL (70-99); MAGNESIUM 1.5 mg/dL (1.8-2.4); PHOSPHORUS 2.8 mg/dL (2.6-4.7); POTASSIUM 3.4 mmol/L (3.5-5.1); SODIUM 142 mmol/L (136-145)
[2017-10-08] MEDS: FUROSEMIDE 40 MG/4 ML VIAL. IVP (07:59)
[2017-10-08] MEDS: LISINOPRIL 20 MG TABLET PO (07:59)
[2017-10-08] MEDS: PREGABALIN 50 MG CAPSULE PO ×3 (07:59→22:11)
[2017-10-08] MEDS: MULTIVITAMIN I-VITE TABLET. PO (08:00)
[2017-10-08] MEDS: predniSONE 20 MG TABLET PO (08:00)
[2017-10-08] MEDS: COLESTIPOL HCL 1 GM TABLET PO ×2 (08:00→20:19)
[2017-10-08] MEDS: HYDROXYCHLOROQUINE 200 MG TABLET PO ×2 (08:02→22:12)
[2017-10-08] MEDS: MAGNESIUM OXIDE 400 MG TABLET PO (08:02)
[2017-10-08] MEDS: ASCORBIC ACID 500 MG TABLET PO (08:02)
[2017-10-08] MEDS: PANTOPRAZOLE 40 MG TABLET.DR. PO (08:02)
[2017-10-08] MEDS: LINEZOLID 600 MG TABLET PO ×2 (08:02→22:13)
[2017-10-08] MEDS: LACTOBACILLUS RHAMNOSUS GG 1 CAPSULE. PO ×2 (08:02→22:13)
[2017-10-08] MEDS: POTASSIUM & SODIUM PHOSPHATES PACKET. PO (08:03)
[2017-10-08] MEDS: DULoxetine HCL 30 MG CAPSULE.DR PO ×2 (08:03→22:10)
[2017-10-08] MEDS: amLODIPine BESYLATE 5 MG TABLET PO ×2 (08:03→22:12)
[2017-10-08] MEDS: POLYETHYLENE GLYCOL 3350 17 GM PACKET. PO (08:04)
[2017-10-08] MEDS: ARIPiprazole 5 MG TABLET PO (08:04)
[2017-10-08] MEDS: DICLOFENAC SODIUM 1% TOPICAL GEL 100GM TUBE. TP ×4 (08:05→22:14)
[2017-10-08] MEDS: NYSTATIN 100,000 UNITS/ML 5 ML ORAL.SUSP. SWSW ×4 (08:05→22:14)
[2017-10-08] MEDS: POTASSIUM CHLORIDE 20 MEQ TABLET.ER. PO (11:00)
[2017-10-08] MEDS: diphenhydrAMINE 50 MG/ML VIAL IVP ×2 (13:16→22:14)
[2017-10-08] MEDS: MORPHINE SULFATE 4 MG/ML DISP.SYRIN. IV ×2 (13:26→20:19)
[2017-10-08 15:11] LABS: CALCIUM PTH 8.1 mg/dL (8.7-10.3); CREATININE PTH 0.73 mg/dL (0.57-1.00); PHOSPHORUS PTH 2.6 mg/dL (2.5-4.5); PTH INTACT 121 pg/mL (15-65); eGFR AFRICAN-AMER 98 (>59); eGFR NON AFRICAN-AMER 85 (>59)
[2017-10-08] MEDS: ALPRAZolam 0.5 MG TABLET PO (22:11)
[2017-10-08] MEDS: ZOLPIDEM 5 MG TABLET. PO (22:11)
[2017-10-08] MEDS: MESALAMINE 1,000 MG SUPP.RECT PR (22:14)
[2017-10-09] MEDS: POTASSIUM CL 20MEQ D5-0.45NACL 1,000 ML IV (05:40)
[2017-10-09] MEDS: oxyCODONE IR 5 MG TABLET PO ×2 (05:49→14:30)
[2017-10-09 05:52] LABS: HEMATOCRIT 24.5 % (36.0-47.0); HEMOGLOBIN 8.2 g/dL (12.0-15.5); MEAN CORPUSCULAR HEMOGLOBIN 30 pg (25-35); MEAN CORPUSCULAR HGB CONC 34 g/dL (31-37); MEAN CORPUSCULAR VOLUME 88 fL (79-100); PLATELET COUNT 135 x10^3/uL (140-400); RED BLOOD COUNT 2.78 x10^6/uL (3.50-5.40); RED CELL DISTRIBUTION WIDTH 18.3 % (11.5-14.5); WHITE BLOOD COUNT 8.3 x10^3/uL (4.0-11.0)
[2017-10-09 06:03] LABS: INR 3.6 (0.8-1.1)
[2017-10-09 06:12] LABS: ALBUMIN 3.4 g/dL (3.4-5.0); ALBUMIN/GLOBULIN RATIO 1.5 (1.0-1.7); ALK PHOS 82 U/L (46-116); ALT (SGPT) 60 U/L (14-59); ANION GAP 1 (6-14); AST (SGOT) 39 U/L (15-37); BLOOD UREA NITROGEN 12 mg/dL (7-20); BUN/CREATININE RATIO 13 (6-20); CALCIUM 8.1 mg/dL (8.5-10.1); CARBON DIOXIDE 38 mmol/L (21-32); CHLORIDE 104 mmol/L (98-107); CREATININE 0.9 mg/dL (0.6-1.0); GFR 62.3; GLUCOSE 76 mg/dL (70-99); POTASSIUM 4.2 mmol/L (3.5-5.1); SODIUM 143 mmol/L (136-145); TOTAL BILIRUBIN 0.5 mg/dL (0.2-1.0); TOTAL PROTEIN 5.7 g/dL (6.4-8.2)
[2017-10-09 07:07] LABS: SEDIMENTATION RATE 19 (0-25)
[2017-10-09] MEDS: FUROSEMIDE 40 MG/4 ML VIAL. IVP (09:22)
[2017-10-09] MEDS: POTASSIUM & SODIUM PHOSPHATES PACKET. PO (09:23)
[2017-10-09] MEDS: NYSTATIN 100,000 UNITS/ML 5 ML ORAL.SUSP. SWSW ×2 (09:23→14:29)
[2017-10-09] MEDS: COLESTIPOL HCL 1 GM TABLET PO (09:23)
[2017-10-09] MEDS: ARIPiprazole 5 MG TABLET PO (09:23)
[2017-10-09] MEDS: LACTOBACILLUS RHAMNOSUS GG 1 CAPSULE. PO (09:24)
[2017-10-09] MEDS: ASCORBIC ACID 500 MG TABLET PO (09:24)
[2017-10-09] MEDS: PANTOPRAZOLE 40 MG TABLET.DR. PO (09:24)
[2017-10-09] MEDS: MAGNESIUM OXIDE 400 MG TABLET PO (09:24)
[2017-10-09] MEDS: LISINOPRIL 20 MG TABLET PO (09:24)
[2017-10-09] MEDS: amLODIPine BESYLATE 5 MG TABLET PO (09:24)
[2017-10-09] MEDS: MULTIVITAMIN I-VITE TABLET. PO (09:25)
[2017-10-09] MEDS: predniSONE 20 MG TABLET PO (09:25)
[2017-10-09] MEDS: PREGABALIN 50 MG CAPSULE PO ×2 (09:25→14:30)
[2017-10-09] MEDS: HYDROXYCHLOROQUINE 200 MG TABLET PO (09:25)
[2017-10-09] MEDS: DULoxetine HCL 30 MG CAPSULE.DR PO (09:25)
[2017-10-09] MEDS: LINEZOLID 600 MG TABLET PO (09:25)
[2017-10-09] MEDS: POLYETHYLENE GLYCOL 3350 17 GM PACKET. PO (09:29)
[2017-10-09] MEDS: DICLOFENAC SODIUM 1% TOPICAL GEL 100GM TUBE. TP ×2 (09:30→13:00)
[2017-10-09] MEDS: MORPHINE SULFATE 4 MG/ML DISP.SYRIN. IV (09:37)
[2017-10-09] MEDS: IRON SUCROSE COMPLEX 200 MG in IV NORMAL SALINE 100ML 100 ML IV (12:28)
[2017-10-09 17:14] LABS: SODIUM, URINE 121 mmol/L (Not Estab.); UR POTASSIUM 10.1 mmol/L (Not Estab.)
[2017-10-10] MEDS ORDERED: predniSONE 10 MG TABLET PO (09:00)
== END 2017-10-09 17:45 | disposition home or self-care (01) | DRG 871 ==
LOC: 6 SOUTH 10-01 10:39 → ER 16:12 → 1 WEST ICU 18:41
PROVIDERS: Neurological Surgery
PROC: 30233N1 Transfusion of Nonautologous Red Blood Cells into Peripheral Vein, Percutaneous Approach (ICD-10-PCS; principal; 2017-09-29)
PROC: 02H633Z Insertion of Infusion Device into Right Atrium, Percutaneous Approach (ICD-10-PCS; 2017-09-29)
DX: A41.9 Sepsis, unspecified organism (principal); E43 Unspecified severe protein-calorie malnutrition; J96.91 Respiratory failure, unspecified with hypoxia; N17.0 Acute kidney failure with tubular necrosis; R65.21 Severe sepsis with septic shock; G92 Toxic encephalopathy; J90 Pleural effusion, not elsewhere classified; E11.22 Type 2 diabetes mellitus with diabetic chronic kidney disease; D62 Acute posthemorrhagic anemia; K55.9 Vascular disorder of intestine, unspecified; D68.59 Other primary thrombophilia; J98.11 Atelectasis; K50.90 Crohn's disease, unspecified, without complications; K81.0 Acute cholecystitis; L03.115 Cellulitis of right lower limb; M84.40XA Pathological fracture, unspecified site, initial encounter for fracture; K92.2 Gastrointestinal hemorrhage, unspecified; E11.42 Type 2 diabetes mellitus with diabetic polyneuropathy; E11.621 Type 2 diabetes mellitus with foot ulcer; E11.36 Type 2 diabetes mellitus with diabetic cataract; B37.9 Candidiasis, unspecified; D50.9 Iron deficiency anemia, unspecified; E87.6 Hypokalemia; F17.200 Nicotine dependence, unspecified, uncomplicated; F32.9 Major depressive disorder, single episode, unspecified; F41.9 Anxiety disorder, unspecified; G47.33 Obstructive sleep apnea (adult) (pediatric); G89.29 Other chronic pain; H04.123 Dry eye syndrome of bilateral lacrimal glands; I12.9 Hypertensive chronic kidney disease with stage 1 through stage 4 chronic kidney disease, or unspecified chronic kidney disease; J44.9 Chronic obstructive pulmonary disease, unspecified; K21.9 Gastro-esophageal reflux disease without esophagitis; K59.00 Constipation, unspecified; L97.519 Non-pressure chronic ulcer of other part of right foot with unspecified severity; L97.529 Non-pressure chronic ulcer of other part of left foot with unspecified severity; M19.90 Unspecified osteoarthritis, unspecified site; M32.9 Systemic lupus erythematosus, unspecified; M48.00 Spinal stenosis, site unspecified; M51.36 Other intervertebral disc degeneration, lumbar region; N18.3 Chronic kidney disease, stage 3 (moderate); R13.10 Dysphagia, unspecified; Z96.1 Presence of intraocular lens; Z79.01 Long term (current) use of anticoagulants; Z79.2 Long term (current) use of antibiotics; Z80.1 Family history of malignant neoplasm of trachea, bronchus and lung; Z82.49 Family history of ischemic heart disease and other diseases of the circulatory system; Z85.118 Personal history of other malignant neoplasm of bronchus and lung; Z86.718 Personal history of other venous thrombosis and embolism; Z88.0 Allergy status to penicillin; Z88.1 Allergy status to other antibiotic agents; Z79.899 Other long term (current) drug therapy; M54.5 Low back pain; Z96.643 Presence of artificial hip joint, bilateral; Z96.653 Presence of artificial knee joint, bilateral; E11.622 Type 2 diabetes mellitus with other skin ulcer; R07.89 Other chest pain; Z68.30 Body mass index [BMI] 30.0-30.9, adult; Z98.42 Cataract extraction status, left eye; Z98.41 Cataract extraction status, right eye; Z87.81 Personal history of (healed) traumatic fracture
CPT/HCPCS: 36415; 36556; 70450; 71045; 71046; 71275; 72131; 73620; 76770; 78226; 80048; 80053; 80069; 80202; 81001; 82436; 82550; 82553; 82570; 82607; 82728; 82746; 83540; 83550; 83605; 83735; 83880; 83970; 84100; 84133; 84134; 84156; 84300; 84484; 85007; 85014; 85018; 85025; 85027; 85610; 85651; 86850; 86900; 86901; 86902; 86922; 87040; 87086; 87205; 87324; 87641; 93005; 93971; 96361; 96365; 96366; 96368; 96374; 96375; 97110-GP; 97162-GP; 97166-GO; 99291; A9537; J0360; J1200; J1265; J1720; J1756; J1940; J1956; J2185; J2270; J2405; J3370; J3430; J7030; J7512; P9016; P9045; P9046; Q9967

== ENCOUNTER → 2018-06-18 | Outpatient (CLI) | payer MEDICARE, OTHER ==
[2017-10-09 15:00] VITALS: BP 118/76
[~2018-06-18] MED LIST: ALPR0.5T6 PO; AMLO5TAB10 PO; ARIP5TAB13 PO; BENA20TA4 PO; CA C1TAB38 PO; CELE200C PO; CHOL500016 PO; COLE1TAB PO; DEXT10TA38 PO; DICL100G18 TP; DICL150D5 TP; DULO60CA44 PO; DULO60CA6 PO; ESZO3TAB28 PO; HYDR12TA PO; HYDR200T5 PO; HYDR4TAB45 PO; HYDR50CA PO; LINE600T PO; METH25VI27 IJ; NYST100054 SWSW; OXYC15TA PO; PRED20TA PO; PRED5TAB PO; PREG100C PO; PREG50CA PO; PROC5TAB14 PO; Pantoprazole PO; TAPE100T7 PO; TIZA4TAB PO; TRAZ-85 PO; WARF-31 PO; WARF2.5T71 PO; [UNRECOGNIZED DRUG - OTHER]
--- NOTE | 2018-06-18 13:31 | KCIC ---
EXAM: Renal sonogram. HISTORY: Renal failure. TECHNIQUE: Sonographic imaging of the kidneys and bladder was performed. COMPARISON: 09/29/2017. FINDINGS: The right kidney measures 9.8 cm yzef-[id number]-yqgg. The left kidney measures 10.1 cm bboz-dn-ccyb. No solid or cystic renal lesion is seen. There is no hydronephrosis. The urinary bladder is unremarkable. IMPRESSION: Sonographically unremarkable kidneys and bladder. Electronically signed by: Sarahi Dyer MD (06/18/2018 1:25 PM) [id number]
== END | disposition home or self-care (01) ==
LOC: KCIC US 11:55
DX: I12.9 Hypertensive chronic kidney disease with stage 1 through stage 4 chronic kidney disease, or unspecified chronic kidney disease (principal); E11.22 Type 2 diabetes mellitus with diabetic chronic kidney disease; N18.3 Chronic kidney disease, stage 3 (moderate)
CPT/HCPCS: 76770

== ENCOUNTER → 2019-05-22 | Outpatient (CLI) | payer MEDICARE, OTHER ==
[2017-10-09 15:00] VITALS: BP 118/76
[~2019-05-22] MED LIST changes: -DULO60CA44 PO; +DULO60CA45 PO; -LINE600T PO; +LINE600T12 PO; -TIZA4TAB PO; +TIZA4TAB2 PO; +TRAZ-118 PO; -TRAZ-85 PO
--- NOTE | 2019-05-22 16:33 | KCIC ---
EXAM: Chest, 2 views. HISTORY: Long-term high risk medication use. COMPARISON: 10/03/2017, 10/04/2017 FINDINGS: 2 views of the chest are obtained. There is no infiltrate, pleural effusion or pneumothorax. The heart is normal in size. There is interposition of the colon superior to the liver, a normal variant. There is a severe compression fracture with retropulsion of the cortex at L1, stable compared to a CT dated 10/04/2017. IMPRESSION: No acute pulmonary finding. Electronically signed by: Sarahi Dyer MD (05/22/2019 4:30 PM) [place] [id number]
== END | disposition home or self-care (01) ==
LOC: KCIC 15:29
PROVIDERS: ATTEND Specialist
DX: M48.56XA Collapsed vertebra, not elsewhere classified, lumbar region, initial encounter for fracture (principal); M32.9 Systemic lupus erythematosus, unspecified; Z79.899 Other long term (current) drug therapy
CPT/HCPCS: 71046

== ENCOUNTER → 2019-11-20 | Outpatient (CLI) | payer MEDICARE, OTHER ==
[2019-07-19 12:00] VITALS: BP 133/70
[~2019-11-20] MED LIST changes: -DICL100G18 TP; +DICL100G54 TP; +FENT1PAT15 TD; +FERR-36 PO; +MIDO5TAB4 PO; -OXYC15TA PO; +OXYC15TA3 PO; +PANT40TA77 PO; +PRED-220 PO; -PREG50CA PO; +PREG50CA91 PO; +REGADENOSON 0.4 MG/5 ML DISP.SYRIN. IV ONE
--- NOTE | 2019-11-20 12:57 | RAD ---
MR#: [id number] Date of Study: 11/20/2019 Ordering Physician: JAGJIT ESTRADA Referring Physician: MARTA ALARCON Tech: SANJU Anaya, ARRT (R) (N) APPROVED REPORT Test Type: Pharmacological Stress Nurse/Tech: Cecil Ziegler RN Test Indications: Elevated Troponin Cardiac History: HTN, See EMR Medications: Coumadin, See EMR Medical History: See EMR Resting ECG: SR Resting Heart Rate: 75 bpm Resting Blood Pressure: 136/69mmHg Pretest Chest Pain: No chest pain Nurse/Tech Notes Lungs CTA, Heart tones regular. Consent: The procedure was explained to the patient in lay terms. Informed consent was witnessed. Cesar eout was entered into [employer]. History and Stress Test performed by RT Babs (Ricardo) (N) Pharm. Details Pharmacologic stress testing was performed using 0.4mg per 5ml of regadenoson given intravenously ove r 7-10 seconds. Stress Symptoms No chest pain or symptoms. POST EXERCISE Reason for Termination: Infusion complete Max HR: 92 bpm Max Blood Pressure: 131/57mmHg Blood Pressure response to exercise: Normal blood pressure response during stress. Heart Rate response to exercise: WNL Chest Pain: No. Arrhythmia: No. ST Change: No. INTERPRETATION Stress EKG Conclusion: Baseline EKG showed sinus rhythm. No ischemic changes at peak stress. No arr hythmias. Imaging Protocol IMAGE PROTOCOL: Rest Tc-99m/stress Tc-99m 1 day Rest: Stress: Viability: Radiopharm.Tc99m [id number] Sestamibi Dose10.8mCi 32.4mCi Img Date 11/20/2019 11/20/2019 Inj-Img Obcp06ojw. 60min. Rest Admin Site:IV - Right AntecubitalAdministrator: RT Traci Brice)(N) Stress Admin Site: IV - Right AntecubitalAdministrator: RT Traci Brice)(N) STRESS DATA End Diast. Vol.60.0mlAv. Heart Rate84.0bpm End Syst. Vol.9.0mlCO Index BSA0.0L/min Myocardial Klgx451.0gEject. Onobbbpu79.0% Stress Rates Pk. Fill Rate4.47EDV/secLVtime Pk. Fill 200.23msec Pk. Empty Rate5.69ESV/secLVtime Pk. Rwhxt683.95msec 1/3 Pk. Fill0.96EDV/sec Stress Scores Regional WT2.00Summed WT11.00 Regional WM0.00Summed WM1.00 Study quality was good. Left Ventricular size was Normal at Rest and Stress. Lung uptake was . Left Ventricular ejection fraction is 80%. The rest and stress images show normal perfusion, normal contraction and thickening. LV Perf. Quant 17 Seg. SSS0.00 17 Seg. SRS1.00 17 Seg. SDS0.00 Stress Defect Extent (% LAD)0.00Rest Defect Extent (% LAD)0.00Rev. Defect Extent (% LAD)0.00 Stress Defect Extent (% LCX) 0.00Rest Defect Extent (% LCX)0.00Rev. Defect Extent (% LCX)0.00 Stress Defect Extent (% RCA)0.00Rest Defect Extent (% RCA)0.00Rev. Defect Extent (% RCA)0.00 Stress Defect Extent (% DENIA)0.00Rest Defect Extent (% DENIA)0.00Rev. Defect Extent (% DENIA)0.00 Conclusion 1. Regadenoson cardioisotope stress test did not show any evidence of ischemia or infarct. 2. Normal left ventricular systolic function with ejection fraction calculated at 80%. 3. Low risk for cardiac events. Signed by : Jagjit Estrada, Electronically Approved : 11/20/2019 12:56:44
== END | disposition home or self-care (01) ==
LOC: NM 11-19 14:37
PROVIDERS: ATTEND Internal Medicine Cardiovascular Disease
DX: I10 Essential (primary) hypertension (principal); R79.89 Other specified abnormal findings of blood chemistry
CPT/HCPCS: 78452; 93017; A9500; J2785

== ENCOUNTER → 2020-05-26 | Outpatient (CLI) | payer MEDICARE, BC ==
[2019-07-19 12:00] VITALS: BP 133/70
[~2020-05-26] MED LIST changes: +AMLO-186 PO; -AMLO5TAB10 PO; -REGADENOSON 0.4 MG/5 ML DISP.SYRIN. IV ONE
--- NOTE | 2020-05-26 17:01 | KCIC ---
Chest radiograph 05/26/2020 1:20 PM INDICATION: Lupus, shortness of air COMPARISON: CT chest 10/03/2017, chest radiograph 10/03/2017 TECHNIQUE: Frontal and lateral views of the chest are provided. FINDINGS: The cardiomediastinal silhouette is within normal limits. There are no pleural effusions. There is no pulmonary vascular congestion. There is no pneumothorax. The lungs are clear. 10 mm nodular opacity projects over the posterior right ninth rib. No significant osseous abnormality is identified. IMPRESSION: No acute cardiopulmonary process. 10 mm nodular opacity projects over the posterior ninth rib. This may represent a parenchymal nodule and further characterization with CT chest with contrast is recommended. Electronically signed by: Preeti Martinez MD (05/26/2020 4:58 PM) [id number]
--- NOTE | 2020-05-26 17:04 | KCIC ---
XR CERVICAL SPINE COMPLETE WITH FLEXION AND EXTENSION VIEWS 05/26/2020 1:20 PM INDICATION: Cervicalgia compression fractures. Lupus. COMPARISON: None available. TECHNIQUE: AP, flexion, extension, swimmer's, bilateral oblique, lateral and odontoid views of cervi hans spine are provided. FINDINGS/ IMPRESSION: 1. There is retrolisthesis of C5 on C6 which measures 4 mm upon flexion and extension as well as neut ral position. 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 There is osseous fusion of the facet joints at C2-C3. Mild facet arthropathy. No signi ficant osseous neural foraminal stenosis. Medications of positioning. 2. Moderate uncovertebral joint disease. Calcification at the carotid bulbs noted. There is preverteb ral edema at C4-C5 which could be further characterized with CT neck with contrast. 3. Lateral masses of C1 articulate appropriately with the C2 vertebral body. Dens is intact. Mild amy antoaxial articulation degenerative changes. Electronically signed by: Preeti Martinez MD (05/26/2020 5:01 PM) [id number]
--- NOTE | 2020-05-26 17:06 | KCIC ---
XR HAND 3 VIEWS 05/26/2020 1:20 PM INDICATION: Lupus, joint pain COMPARISON: None available. TECHNIQUE: 3 views of the right hand and 3 views of the left hand are provided. FINDINGS/ IMPRESSION: 1. Left hand: There is no acute fracture or dislocation. There is moderate joint space narrowing invo lving the first carpometacarpal joint with subcortical sclerosis and marginal osteophytosis compatibl e with moderate osteoporosis. There is severe radiocarpal osteoarthrosis. Mild sclerosis of the lunat e could reflect osteonecrosis. 2. Right hand: There is no acute fracture or dislocation. Moderate to advanced osteoarthrosis of the first carpometacarpal joint with joint space narrowing and subcortical sclerosis with marginal osteop hytosis compatible with moderate osteoarthrosis. Mild joint space narrowing involving the second and third metacarpophalangeal joints with marginal osteophytosis. Mild degenerative changes of the interp halangeal joints. Osteopenia. Electronically signed by: Preeti Martinez MD (05/26/2020 5:03 PM) [id number]
--- NOTE | 2020-05-26 17:08 | KCIC ---
XR FEET 3 VIEWS 05/26/2020 1:20 PM INDICATION: Lupus, joint pain COMPARISON: None available. TECHNIQUE: 3 views the right 3 views of the left foot are provided. FINDINGS/ IMPRESSION: 1. Left foot: Advanced osteoarthrosis with nonenhanced cemented fusion of the first metatarsophalange al joint with large overhanging osteophytes. No acute fracture is identified. Remodeling of the base of the second metatarsal may reflect sequela of remote trauma. Plantar calcaneal enthesophyte is pres ent. Degenerative changes of the tibiotalar joint are noted. Dorsal osteophyte along the anterior yogesh us noted. 2. There is hallux valgus deformity with advanced osteoarthrosis of the first metatarsophalangeal tirso nt with subcortical sclerosis and marginal osteophytosis as well as joint space narrowing. Remodeling of the neck of the third metatarsal suggestive of sequela prior trauma. Plantar calcaneal enthesophy te is present. Electronically signed by: Preeti Martinez MD (05/26/2020 5:06 PM) [id number]
== END ==
LOC: KCIC 13:15
PROVIDERS: ATTEND Student in an Organized Health Care Education/Training Program
DX: M19.072 Primary osteoarthritis, left ankle and foot (principal); M19.071 Primary osteoarthritis, right ankle and foot; M77.32 Calcaneal spur, left foot; M77.31 Calcaneal spur, right foot; M20.12 Hallux valgus (acquired), left foot; M20.11 Hallux valgus (acquired), right foot; K50.914 Crohn's disease, unspecified, with abscess; R06.02 Shortness of breath; M19.042 Primary osteoarthritis, left hand; M19.041 Primary osteoarthritis, right hand; M85.842 Other specified disorders of bone density and structure, left hand; M85.841 Other specified disorders of bone density and structure, right hand; M25.742 Osteophyte, left hand; M25.741 Osteophyte, right hand; M47.812 Spondylosis without myelopathy or radiculopathy, cervical region; M43.12 Spondylolisthesis, cervical region
CPT/HCPCS: 71046; 72052; 73130; 73630

== ENCOUNTER → 2020-06-15 | Outpatient (CLI) | payer MEDICARE, BC ==
[2019-07-19 12:00] VITALS: BP 133/70
[~2020-06-15] MED LIST changes: +CONTRAST GIVEN. MC PRN; +IOHEXOL 300 MG/ML 100ML VIAL. IV ONE
--- NOTE | 2020-06-16 10:31 | KCIC ---
EXAM: 1. CT NECK WITH CONTRAST 2. CT CHEST WITH CONTRAST HISTORY: Prevertebral edema at C4-C5 on recent neck x-ray. Lung nodule on chest x-ray. COMPARISON: Chest radiograph 05/26/2020. Cervical spine radiograph 05/26/2020 TECHNIQUE: Helical CT of the neck performed after administration of 70 mL Omnipaque 300 intravenous c ontrast. Coronal and sagittal reformats were obtained. Helical CT of the chest performed after admini stration of 80 mL Omnipaque 300 intravenous contrast. Coronal and sagittal reformats were obtained. One or more of the following individualized dose reduction techniques were utilized for this examinat ion: 1. Automated exposure control 2. Adjustment of the mA and/or kV according to patient size 3. Use of iterative reconstruction technique. FINDINGS: CT NECK: Airway: The nasopharynx, oropharynx, hypopharynx, and larynx are normal. Parotid, submandibular, and thyroid glands: Parotid and submandibular glands are normal. The thyroid gland is heterogeneous with multiple nodules, the largest on the right measuring 9 mm and on the left measuring at least 8 mm. Lymph nodes: There is no lymphadenopathy. Skull base: Visualized intracranial contents is unremarkable. There is mild mucosal thickening in the left ethmoid air cells. Partial opacification of right mastoid air cells. Remaining visualized paran cyn sinuses are clear. Visualized portion of globes and orbits are intact. Vasculature: Cervical vasculature is patent. There are calcifications in the left carotid bulb. Retro pharyngeal course of the right internal carotid artery. Prevertebral soft tissue is normal. Cervical spine: There is mild reversal of lordosis. No acute fracture. 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 There is severe disc space narrowing at C3-C4, C5-C6, and C6-C7 with degenerative endplate changes. Uncovertebral joint prolife ration is seen at the C5-C6 and C6-C7. There are central disc protrusions at C2-C3 and to a lesser ex tent C3-C4 indenting the ventral cord. There is mild right foraminal narrowing at C3-C4. Mild canal n arrowing and severe right and moderate to severe left foraminal narrowing at C5-C6. Mild canal narrow ing and moderate to severe left and moderate right foraminal narrowing at C6-C7. CT CHEST: Heart and great vessels: Heart is normal in size. No pericardial effusion. Coronary artery calcificat ions. Thoracic aorta is normal in caliber. Mediastinum and anika: No lymphadenopathy. Lungs and pleura: No abnormalities correlate with the possible pulmonary nodule seen on chest radiogr aph. A 3 mm subpleural nodule in the left apex (image 44 series 8), 3 mm pulmonary nodule in the ling acacia (image 106, series 8, and 3 mm juxta fissural triangular pulmonary nodule in the right upper lobe along the major fissure (image 67 series 8) are all unchanged from 10/03/2017. No new pulmonary nodul es. Mild airway wall thickening. No pleural effusion. Chest wall and axillae: Normal. Upper abdomen: Visualized portion of upper abdomen is unremarkable. Bones: There is an old healed right ninth posterior rib fracture. An L1 burst fracture with severe he ight loss and 6 mm retropulsion of cortex resulting in canal narrowing and focal kyphosis is unchange d from 10/04/2017. Unchanged mild superior endplate compression deformity of T4. IMPRESSION: 1. No prevertebral soft tissue abnormality or other acute abnormality in the neck. 2. 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 3. Multinodular thyroid gland. 4. No pulmonary nodule or other abnormality to correlate with the finding on chest radiograph. Sever al scattered 3 mm pulmonary nodules are unchanged from 2018 and require no follow-up. 5. Unchanged L1 burst fracture with severe height loss, retropulsion of cortex, and canal narrowing and kyphosis. This is unchanged from 2018. 6. Old healed right ninth posterior rib fracture. Electronically signed by: Saba Tapia MD (06/16/2020 10:28 AM) [id number]
== END ==
LOC: KCIC CT 12:49
PROVIDERS: ATTEND Student in an Organized Health Care Education/Training Program
DX: R91.8 Other nonspecific abnormal finding of lung field (principal); R05 Cough; I25.10 Atherosclerotic heart disease of native coronary artery without angina pectoris; M48.02 Spinal stenosis, cervical region; M50.30 Other cervical disc degeneration, unspecified cervical region; M48.061 Spinal stenosis, lumbar region without neurogenic claudication; S32.011A Stable burst fracture of first lumbar vertebra, initial encounter for closed fracture; J34.89 Other specified disorders of nose and nasal sinuses; I65.22 Occlusion and stenosis of left carotid artery; M40.292 Other kyphosis, cervical region; M50.21 Other cervical disc displacement, high cervical region; M43.8X4 Other specified deforming dorsopathies, thoracic region; M47.812 Spondylosis without myelopathy or radiculopathy, cervical region; X58.XXXA Exposure to other specified factors, initial encounter; Y93.89 Activity, other specified; Y92.89 Other specified places as the place of occurrence of the external cause; Y99.8 Other external cause status
CPT/HCPCS: 70491; 71260; Q9967

== ENCOUNTER → 2020-10-07 | Outpatient (CLI) | payer MEDICARE, BC ==
[2019-07-19 12:00] VITALS: BP 133/70
[~2020-10-07] MED LIST changes: -CONTRAST GIVEN. MC PRN; -IOHEXOL 300 MG/ML 100ML VIAL. IV ONE
--- NOTE | 2020-10-08 17:53 | CARD ---
MR#: [id number] Date of Study: 10/07/2020 Ordering Physician: JAGJIT ESTRADA, Referring Physician: Barber ALARCON: Danuta Moyer [facility] APPROVED REPORT EXAM: Two-dimensional and M-mode echocardiogram with Doppler and color Doppler. Other Information Quality : Fair Rhythm : NSR INDICATION Hypertension/HCVD Edema SOA Echo Enhancing Agent Indication: Rule Out Septal Defect RISK FACTORS Hypertension 2D DIMENSIONS Left Atrium(2D)3.8 (1.6-4.0cm)IVSd1.5 (0.7-1.1cm) Aortic Root(2D)3.1 (2.0-3.7cm)LVDd3.9 (3.9-5.9cm) LVOT Diameter2.3 (1.8-2.4cm)PWd1.3 (0.7-1.1cm) LVDs2.6 (2.5-4.0cm)FS (%) 34.7 % SV43.4 ml Aortic Valve AoV Peak Tawanda.184.5cm/Diane Peak GR.13.6mmHg LVOT Peak Tawanda.5.5cm/s Mitral Valve MV E Ncsxzsxy57.0cm/sMV DECEL [id number] MV A Sebysnmg99.4cm/sE/A Ratio0.7 Pulmonary Valve PV Peak Tracdsrm305.1cm/s Tricuspid Valve TR P. Vpfemyzl134jq/sRAP [id number] TR Peak Gr.8mmHg LEFT VENTRICLE Technically difficult study. The left ventricle is normal size. There is mild to moderate left ventr icular hypertrophy. The echo findings are consistent with possible mild left ventricular outflow obst ruction. The left ventricular systolic function is normal and the ejection fraction is within normal range. LV ejection fraction of 55 to 60% There is normal LV segmental wall motion. Tissue Doppler kirit ging reveals abnormal left ventricular diastolic dysfunction. No left ventricle thrombus noted on thi s study. There is no ventricular septal defect visualized. There is no left ventricular aneurysm. The re is no mass noted in the left ventricle. RIGHT VENTRICLE The right ventricle is normal size. There is normal right ventricular wall thickness. The right ventr icular systolic function is normal. ATRIA The left atrium size is normal. The right atrium size is normal. The interatrial septum is intact wit h no evidence for an atrial septal defect or patent foramen ovale as noted on 2-D or Doppler imaging. No bubble study on this examination. AORTIC VALVE The aortic valve is normal in structure and function. Doppler and Color Flow revealed no significant aortic regurgitation. There is no significant aortic valvular stenosis. MITRAL VALVE The mitral valve is normal in structure and function. There is no mitral valve stenosis. Doppler and Color-flow revealed trace to mild mitral regurgitation. TRICUSPID VALVE The tricuspid valve is normal in structure and function. There is no tricuspid valve regurgitation no kareem. There is no tricuspid valve prolapse or vegetation. There is no tricuspid valve stenosis. PULMONIC VALVE The pulmonary valve is normal in structure and function. Doppler and Color Flow revealed trace pulmon ic valvular regurgitation. There is no pulmonic valvular stenosis. GREAT VESSELS The aortic root is normal in size. The ascending aorta is normal in size. The pulmonary artery is nor mal. The IVC is normal in size and collapses >50% with inspiration. PERICARDIAL EFFUSION There is no pleural effusion. Pericardium appears mildly thickened. Critical Notification Critical Value: No <Conclusion> Technically difficult study. The left ventricle is normal size. The left ventricular systolic function is normal and the ejection fraction is within normal range. LV ejection fraction of 55 to 60% There is mild to moderate left ventricular hypertrophy. The echo findings are consistent with possible mild left ventricular outflow obstruction. The interatrial septum is intact with no evidence for an atrial septal defect or patent foramen ovale as noted on 2-D or Doppler imaging. No bubble study on this examination. Doppler and Color Flow revealed no significant aortic regurgitation. There is no significant aortic valvular stenosis. Doppler and Color-flow revealed trace to mild mitral regurgitation. There is no tricuspid valve regurgitation noted. Signed by : Antwan Anthony MD Electronically Approved : 10/08/2020 17:53:03
== END ==
LOC: ECHO 10:36
PROVIDERS: ATTEND Internal Medicine Cardiovascular Disease
DX: I34.0 Nonrheumatic mitral (valve) insufficiency (principal); I51.7 Cardiomegaly; R60.9 Edema, unspecified
CPT/HCPCS: 93306